=== PATIENT | female | born 1975 | race Caucasian/White ===

== ENCOUNTER 2021-03-11 19:19 | Emergency (ER) | payer OTHER ==
--- NOTE | 2021-03-11 19:34 | ED Physician Documentation ---
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 The patient had no significant medical history. No known history of HIV or AIDS. No known history of cirrhosis, hepatitis. Review of Systems Constitutional: denies: Fever, Chills Respiratory: denies: Cough GI: denies: Abdominal Pain, Nausea, Vomiting, Diarrhea : denies: Dysuria Skin: denies: Rash Musculoskeletal: denies: Neck pain, Back pain Neurologic: denies: Headache PD PAST MEDICAL HISTORY - Past Medical History Past Medical History: Yes Endocrine/Autoimmune: HyPOthyroidism, Other Other Past Medical History: thyroid CA - Past Surgical History Past Surgical History: Yes - Present Medications Home Medications: Ambulatory Orders Medication Instructions Recorded Confirmed Levothyroxine [Synthroid] 125 mcg PO DAILY 03/11/21 03/11/21 - Allergies Allergies/Adverse Reactions: Allergies Allergy/AdvReac Type Severity Reaction Status Date / Time No Known Drug Allergies Allergy Verified 03/11/21 19:25 - Social History Does the pt smoke?: No Smoking Status: Never smoker Does the pt drink ETOH?: No Does the pt have substance abuse?: No - Immunizations Immunizations are current?: No Immunizations: TDAP >10years/unknown - POLST Patient has POLST: No PD ED PE NORMAL - Vitals Vital signs reviewed: Yes - General General: Alert and oriented X 3 - HEENT HEENT: Moist mucous membranes - Neck Neck: Supple, no meningeal sign - Cardiac Cardiac: RRR - Respiratory Respiratory: No respiratory distress, Clear bilaterally - Derm Derm: Warm and dry - Extremities Extremities: Other (Small abrasion to the right hand. No active bleeding. No laceration) - Neuro Neuro: Alert and oriented X 3 Results - Vitals Vitals: Vital Signs - 24 hr 03/11/21 03/11/21 03/11/21 19:25 19:33 19:59 Temperature 36.5 C 36.5 C 36.5 C Heart Rate 85 85 80 Respiratory 16 16 16 Rate Blood Pressure 103/82 H 103/82 H 105/78 O2 Saturation 98 98 99 Oxygen O2 Source Room air - Labs Labs: Laboratory Tests 03/11/21 03/11/21 19:50 19:50 WBC 8.9 RBC 4.59 Hgb 13.8 Hct 41.7 MCV 90.8 MCH 30.1 MCHC 33.1 RDW 12.6 Plt Count 288 MPV 9.2 Sodium 137 Potassium 3.4 L Chloride 101 Carbon Dioxide 26 Anion Gap 10.0 BUN 13 Creatinine 0.8 Estimated GFR (MDRD) 78 L Glucose 153 H Calcium 9.2 Total Bilirubin 0.6 AST 17 ALT 15 Alkaline Phosphatase 45 Total Protein 6.9 Albumin 4.4 Globulin 2.5 Albumin/Globulin Ratio 1.8 PD MEDICAL DECISION MAKING - ED course Complexity details: considered differential, d/w patient ED course: Patient was using an ultrasonic inspection engineer tonight when she excellently cut herself on the right hand, slight abrasion. Nothing to repair. No bleeding. At the inspection engineer had been used on a patient, but was in a betts when she accidentally hit the inspection engineer. The patient had no known risk factors for HIV or hepatitis. Baseline labs drawn. Patient declines HIV prophylaxis. Patient counseled regarding signs and symptoms for which I believe and urgent re-evaluation would be necessary. Patient with good understanding of and agreement to plan and is comfortable going home at this time This document was made in part using voice recognition software. While efforts are made to proofread this document, sound alike and grammatical errors may occur. Departure - Departure Disposition: 01 Home, Self Care Clinical Impression: Exposure to body fluid Condition: Good Instructions: ED Body Fluid Exp HC Worker Follow-Up: your,doctor in 1 week for test results [Other] Comments: Make sure to follow-up with your doctor in 1 week for results of your testing performed tonight. You received a tetanus shot tonight as well. Return if you worsen Discharge Date/Time: 03/11/21 19:59
[2021-03-11] MEDS ORDERED: TETANUS/DIPHTHERIA/PERTUSSIS 0.5 ML SYRINGE IM ONE (19:45)
[2021-03-11 19:56] LABS: HCT - HEMATOCRIT 41.7 % (37.0-47.0); HGB - HEMOGLOBIN 13.8 g/dL (12.0-16.0); MEAN CORPUSCULAR HEMOGLOBIN 30.1 pg (27.0-31.0); MEAN CORPUSCULAR HGB CONC 33.1 g/dL (32.0-36.0); MEAN CORPUSCULAR VOLUME 90.8 fL (81.0-99.0); MEAN PLATELET VOLUME 9.2 fL (7.9-10.8); RED BLOOD COUNT 4.59 10^6/uL (4.20-5.40); RED CELL DISTRIBUTION WIDTH 12.6 % (12.0-15.0); WHITE BLOOD COUNT 8.9 x10^3/uL (4.8-10.8)
[2021-03-11 20:01] VITALS: BP 105/78
[2021-03-11 20:08] LABS: ALBUMIN 4.4 g/dL (3.2-5.5); ALBUMIN/GLOBULIN RATIO 1.8 (1.0-2.2); BILIRUBIN,TOTAL 0.6 mg/dL (0.2-1.0); CALCIUM 9.2 mg/dL (8.5-10.3); CREATININE 0.8 mg/dL (0.4-1.0); POTASSIUM 3.4 mmol/L (3.5-5.0); TOTAL PROTEIN 6.9 g/dL (6.7-8.2)
[2021-03-13 12:46] LABS: HEPATITIS C ANTIBODY NON-REACTIVE (NON-REACTIVE)
[2021-03-13 14:16] LABS: HIV AG/AB 4TH GEN NON-REACTIVE (NON-REACTIVE)
== END 2021-03-11 19:59 | disposition home or self-care (01) ==
LOC: ED 19:19
DX: S60.511A Abrasion of right hand, initial encounter (principal); Z77.21 Contact with and (suspected) exposure to potentially hazardous body fluids; W29.8XXA Contact with other powered hand tools and household machinery, initial encounter; Y93.89 Activity, other specified; Y92.59 Other trade areas as the place of occurrence of the external cause; Y99.0 Civilian activity done for income or pay; Z23 Encounter for immunization
CPT/HCPCS: 36415; 80053; 85027; 86317; 86803; 87389; 90471; 99282; 99283